=== PATIENT | male | born 1940 | race Caucasian/White ===

== ENCOUNTER 2019-11-30 12:33 | Inpatient (IN) | payer MEDICARE, BC ==
[~2019-11-30] VITALS: Ht 182.9 cm; Wt 72.6 kg
[~2019-11-30 12:33] MED LIST: ASPI81CH43 PO; CANA100T PO; CHOL200021 PO; METF-372 PO; ROSU40TA PO; VALS160T51 PO
[2019-11-30] MEDS ORDERED: SODIUM CHLORIDE 0.9% 1,000 ML IV ONE (13:15)
[2019-11-30] MEDS ORDERED: metroNIDAZOLE 500MG/100ML 100 ML IV ONE (13:15)
[2019-11-30 13:35] LABS: Basophils # (auto) 0.1 10 ^3/uL (0-0.2); Basophils % (auto) 0.8 % (0.0-2.0); Eosinophils # (auto) 0.1 10 ^3/uL (0-0.8); Eosinophils % (auto) 0.9 % (0.0-7.0); Hematocrit 44.2 % (41.0-53.0); Hemoglobin 15.2 g/dL (13.5-17.5); Lymphocytes # (auto) 1.3 10 ^3/uL (0.4-5.4); Lymphocytes % (auto) 15.7 % (10.0-50.0); Mean Corpuscular Hemoglobin 32.9 pg (28.0-32.0); Mean Corpuscular Hgb Conc. 34.3 g/dL (32.0-36.0); Mean Corpuscular Volume 95.7 fL (80.0-100.0); Monocytes # (auto) 0.5 10 ^3/uL (0-1.3); Monocytes % (auto) 6.7 % (0.0-12.0); Neutrophils # (auto) 6.1 10 ^3/uL (1.6-8.6); Neutrophils % (auto) 75.9 % (37.0-80.0); Nucleated Red Blood Cells % 0.1 %; Platelet Count (auto) 220 10^3/uL (140-450); Red Blood Cells 4.62 10^6/uL (4.5-5.90); Red Cell Distribution Width 13.3 % (11.8-14.3)
[2019-11-30 13:55] LABS: Calcium 8.7 mg/dL (8.5-10.1); Potassium 3.4 mmol/L (3.5-5.1)
[2019-11-30 13:56] LABS: Urine Bacteria NONE SEEN /hpf (None Seen); Urine Blood Negative /uL (Negative); Urine Hyaline Cast FEW /lpf (0 - 2); Urine Mucus FEW (None Seen); Urine Specific Gravity 1.025 (1.001-1.035); Urine WBC 1 /hpf (0 - 3)
[2019-11-30 13:57] LABS: BUN/Creatinine Ratio 13.8
[2019-11-30 14:00] LABS: Bilirubin, Total 0.3 mg/dL (0.2-1.0); Total Protein 7.4 g/dL (6.4-8.2)
[2019-11-30] MEDS ORDERED: POTASSIUM EFFERVESENT TAB 25 MEQ PO ONE (14:45)
[2019-11-30] MEDS ORDERED: NITROGLYCERIN 0.4 MG SL TAB SL PRN ×2 (16:00→20:00)
[2019-11-30] MEDS ORDERED: MORPHINE SULF INJ 2 MG/ML SYRINGE 1ML IV PRN ×3 (16:00→20:00)
[2019-11-30] MEDS ORDERED: PANTOPRAZOLE 40 MG TAB PO SCH (17:00)
[2019-11-30] MEDS: CHOLESTYRAMINE 4 GM POWDER PO SCH ×2 (17:00→22:21)
[2019-11-30] MEDS ORDERED: CANA300T PO (17:21)
[2019-11-30] MEDS ORDERED: ROSU1TAB14 PO (17:21)
[2019-11-30] MEDS ORDERED: PIOG1TAB36 PO (17:24)
[2019-11-30] MEDS ORDERED: TEST30SO2 TD (17:24)
[2019-11-30] MEDS ORDERED: [UNRECOGNIZED DRUG - CODE] PO (17:26)
[2019-11-30] MEDS ORDERED: NEBI5TAB2 PO (17:26)
[2019-11-30] MEDS ORDERED: CALC625T3 PO (17:26)
[2019-11-30] MEDS ORDERED: DEXTROSE (50%) 50ML SYRG IV PRN (20:00)
[2019-11-30] MEDS ORDERED: LORazepam 0.5 MG TAB PO PRN (20:00)
[2019-11-30] MEDS ORDERED: POTASSIUM CHL 20 Meq TABLET PO ONE (20:00)
[2019-11-30] MEDS ORDERED: ONDANSETRON HCL 4 MG/2 ML VIAL IV PRN (20:00)
[2019-11-30] MEDS ORDERED: HYDROcodone-ACET 5/325MG TAB PO PRN (20:00)
[2019-11-30] MEDS ORDERED: ALUM & MAG HYDROX-SIMETH LIQ(MAALOX) 30 ML PO PRN (20:00)
[2019-11-30] MEDS ORDERED: SODIUM CHLORIDE 0.9% 1,000 ML IV SCH (20:00)
[2019-11-30] MEDS ORDERED: ACETAMINOPHEN 325 MG TAB PO PRN (20:00)
[2019-11-30 21:00] VITALS: BP 112/72
[2019-11-30 21:45] LABS: Alcohol, Urine < 3.0 mg/dL (0-10); Amphetamine Screen, Urine NEGATIVE (NEGATIVE); Barbiturate Scree,Urine NEGATIVE (NEGATIVE); Benzodiazephine Screen, Urine NEGATIVE (NEGATIVE); Cannabinoid Screen, Urine NEGATIVE (NEGATIVE); Cocaine Screen, Urine NEGATIVE (NEGATIVE); Opiate Scree,Urine NEGATIVE (NEGATIVE); Phencyclidine Screen, Urine NEGATIVE (NEGATIVE)
[2019-11-30] MEDS ORDERED: InsuLIN REG 1unit/0.01ml Soln (100units/ml) SC SCH (22:00)
[2019-11-30] MEDS: CARVEDILOL 3.125 MG TAB PO SCH (22:00)
[2019-11-30] MEDS ORDERED: ATORVASTATIN 20 MG TAB PO SCH (22:00)
[2019-11-30 22:16] LABS: Cholesterol 100 mg/dL (< 200)
[2019-11-30 22:20] LABS: HDL Cholesterol 36 mg/dL (40-59); LDL Cholesterol 49 mg/dL (< 100); Triglycerides 127 mg/dL (< 150)
[2019-11-30] MEDS: ACCU-CHEK COMFORT CURVE STRIP VI SCH (22:22)
[2019-11-30] MEDS: FLORASTOR (S. BOULARDII) 250 MG CAP PO SCH (22:46)
[2019-11-30] MEDS: metroNIDAZOLE 500MG/100ML 100 ML IV SCH (22:51)
[2019-12-01 01:04] VITALS: BP 112/72
[2019-12-01 04:55] VITALS: BP 110/76
[2019-12-01] MEDS: metroNIDAZOLE 500MG/100ML 100 ML IV SCH (05:40)
[2019-12-01] MEDS: ACCU-CHEK COMFORT CURVE STRIP VI SCH ×2 (06:18→11:37)
[2019-12-01] MEDS: InsuLIN REG 1unit/0.01ml Soln (100units/ml) SC SCH ×2 (06:18→11:30)
[2019-12-01 08:35] VITALS: BP 116/66
[2019-12-01] MEDS ORDERED: ASPirin 81 mg TAB PO SCH (10:00)
[2019-12-01] MEDS ORDERED: ENOXAPARIN SOD 40 MG/0.4 ML SYRINGE SC SCH (10:00)
[2019-12-01] MEDS ORDERED: CHOLECALCIFEROL (VITD3) 2,000 UNIT CAP PO SCH (10:00)
[2019-12-01] MEDS ORDERED: POTASSIUM CHL 20 Meq TABLET PO SCH (10:00)
[2019-12-01] MEDS: CARVEDILOL 3.125 MG TAB PO SCH (10:00)
[2019-12-01] MEDS: FLORASTOR (S. BOULARDII) 250 MG CAP PO SCH (10:25)
[2019-12-01] MEDS ORDERED: CHOLECALCIFEROL (VITD3) 1,000UNIT=25mCg TAB PO ONE (10:30)
[2019-12-01 13:00] VITALS: BP 125/73
[2019-12-01 16:35] VITALS: BP 115/70
[2019-12-02] MEDS ORDERED: CHOLECALCIFEROL (VITD3) 1,000UNIT=25mCg TAB PO SCH (10:00)
== END 2019-12-01 15:47 | disposition home or self-care (01) | DRG 392 ==
LOC: ER 12:33 → TELE 12:34 → TELE-CENTR 21:00
PROVIDERS: ADMIT Hospitalist; ATTEND Family Medicine
DX: K58.0 Irritable bowel syndrome with diarrhea (principal); E87.6 Hypokalemia; E11.65 Type 2 diabetes mellitus with hyperglycemia; E78.5 Hyperlipidemia, unspecified; I10 Essential (primary) hypertension; E11.22 Type 2 diabetes mellitus with diabetic chronic kidney disease; I12.9 Hypertensive chronic kidney disease with stage 1 through stage 4 chronic kidney disease, or unspecified chronic kidney disease; K52.9 Noninfective gastroenteritis and colitis, unspecified; R81 Glycosuria; T50.905A Adverse effect of unspecified drugs, medicaments and biological substances, initial encounter; E86.0 Dehydration; N18.9 Chronic kidney disease, unspecified; Z79.899 Other long term (current) drug therapy; Z79.82 Long term (current) use of aspirin; Z79.84 Long term (current) use of oral hypoglycemic drugs; Z82.49 Family history of ischemic heart disease and other diseases of the circulatory system
CPT/HCPCS: 36415; 71045; 74176; 80053; 80061; 80307; 81001; 82962; 83036; 83605; 83690; 84484; 85025; 87040; 87081; 87086; 93005; 96365; G0378; J3490

== ENCOUNTER → 2021-07-13 | Outpatient (CLI) | payer MEDICARE ==
[~2021-07-13] MED LIST changes: +CALC625T3 PO; -CANA100T PO; +CANA300T PO; -METF-372 PO; +NEBI5TAB2 PO; +PIOG1TAB36 PO; +ROSU1TAB14 PO; -ROSU40TA PO; +TEST30SO2 TD; -VALS160T51 PO; +[UNRECOGNIZED DRUG - CODE] PO
== END | disposition home or self-care (01) ==
LOC: LAB 15:01
PROVIDERS: ATTEND Nurse Practitioner Family
DX: R19.7 Diarrhea, unspecified (principal); R10.9 Unspecified abdominal pain
CPT/HCPCS: 87045; 87177; 87427